=== PATIENT | female | born 1935 | race Caucasian/White ===

== ENCOUNTER → 2016-12-10 | Outpatient (CLI) | payer OTHER ==
[~2016-12-10] VITALS: Ht 162.6 cm; Wt 59.0 kg
[~2016-12-10] MED LIST: ACETAMINOPHEN-1 EAC1 PO; ASPIR 8181 MG PO; CITRACAL + BON1 EACH PO; HAIR, SKIN &66.7 MCG PO; OMEPRAZOLE40 MG PO; SIMVASTATIN40 MG PO; SPIRONOLACTONE25 M1 PO; VITAMIN D32000 UNI1 PO
--- NOTE | ~2016-12-10 | P ---
[facility] [place] [address] [place] [address] PROCEDURE REPORT Name: JESSI MERCADO Room #: REG [facility]#: [id number] Admission: 12/10/16 Attend Phys: Rick Burgess MD Discharge: Date of : 35 Report #: [id number] THIS REPORT FOR: //name// CC: Rick Mejia MD OUTPATIENT UPPER ENDOSCOPY REPORT DATE OF SERVICE: 12/10/2016. BRIEF HISTORY: The patient is an 81-year-old woman with complaints of recent vomiting as well as persistent nausea and about 5-pound weight loss. PREOPERATIVE DIAGNOSIS: Persistent nausea. POSTOPERATIVE DIAGNOSIS: Moderate diffuse erythematous gastritis. MEDICATIONS: Deep sedation with propofol per anesthesia. SPECIMEN: Biopsies of gastritis. ESTIMATED BLOOD LOSS: 3 mL. PROCEDURE: Esophagogastroduodenoscopy with biopsy. FINDINGS: Prior to propofol sedation, procedure of upper endoscopy discussed with the patient as well as potential risks and its complications. She indicates she understands and desires to proceed. DESCRIPTION OF PROCEDURE: With the patient in left lateral decubitus position, the Sensopiai video endoscope was inserted in the cervical esophagus under direct vision without difficulty. Examination of this organ through its entire length revealed normal esophageal mucosa down the squamocolumnar junction. Squamocolumnar junction was inspected and noted to be unremarkable. No ulcers or erosions were seen. A significant hiatus hernia was not seen, Parekh was not seen, Parekh mucosa was not seen. No inflammatory changes were seen. Scope was advanced in the stomach, which was examined on end view as well as retroflexed views. There was a moderate diffuse erythema throughout the stomach, but no ulcers or erosions were seen. In addition, in view of her nausea, I did not see any evidence of outlet obstruction or the retained solids or liquids to suggest gastroparesis. Upon retroflexion, no abnormalities were identified. The pylorus, duodenal bulb and postbulbar sweep were inspected and noted to be within normal limits. No ulcers were seen. Again, there is no evidence of obstruction. The scope was advanced down about the fourth portion of duodenum. At that point, the scope was slowly withdrawn and careful circumferential views confirmed the above findings. The patient tolerated the [address] [address] PROCEDURE REPORT Name: JESSI MERCADO Room #: REG [facility] Abel#: [id number] Admission: 12/10/16 Attend Phys: Rick Burgess MD Discharge: Date of : 35 Report #: [id number] procedure well. CONDITION OF THE PATIENT UPON DISCHARGE: Following procedure, the patient drowsy. She will be discharged home when fully ambulatory. INSTRUCTIONS TO THE PATIENT AND FAMILY AT THE TIME OF DISCHARGE: The patient initially had onset of vomiting. The vomiting has resolved. She did not have much pain. However, she continues with nausea. 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 Again, I do not see evidence of significant mucosal disease or outlet obstruction. We will follow up on biopsies and make further recommendations. In particular, she has evidence of H. pylori she may benefit from antibiotics treatment. she is currently is on omeprazole, I think it is helpful to some degree. I would continue at this point in time, we will add Zofran to use as needed for nausea. Another option would be use of metoclopramide, will likely to avoid due to potential side effects. However, if she does not have good results with Zofran, use of metoclopramide may be reasonable on a short-term basis. She will follow up with Dr. Stacy Mejia and return to see me as needed. <ELECTRONICALLY SIGNED> By: Rick Burgess MD 12/10/16 1523 [id number] [id number] Rick Burgess MD /nt
--- NOTE | ~2016-12-10 | S ---
[facility] [place] [address] [place] [address] SURGICAL PATH RPT PROCEDURE Name: JESSI RAMIREZINE Room #: REG [facility]..#: [id number] Admission: 12/10/16 Date of : 35 Discharge: Report #: [id number] Path Case #: [id number] PATHOLOGY REPORT COLLECTION DATE: 12/10/2016 RECEIVED DATE: 12/10/2016 SUBMITTING PHYS: Dr. Rick Burgess OTHER PHYS: Dr. Stacy Mejia SPECIMEN(S) RECEIVED: A.Bx gastritis * * * * * * * * * * * * FINAL DIAGNOSIS: Gastric mucosa, gastritis, endoscopic biopsy: - Moderate reactive gastropathy with focal active gastritis. - Negative for intestinal metaplasia or atrophy. - Negative for Helicobacter pylori. COMMENT: Helicobacter pylori immunohistochemical stain performed on block A1-negative (IUV:mgr; 12/13/2016) PATHOLOGIST: Kandi Gagnon M.D. REPORT ELECTRONICALLY SIGNED BY: Kandi Gagnon M.D. DATE/TIME: 12/13/2016 18:58 * * * * * * * * * * * * GROSS PATHOLOGY: Received in formalin labeled "Jessi Ramirez CARLITOS focal gastritis," are seven segments of choudhary soft tissue measuring 1.3 x 0.8 x 0.2 cm in aggregate dimensions and ranging from 0.2 to 0.4 cm in maximum dimension. The specimen is submitted entirely in cassette A1. (TSD; 12/10/2016) CLINICAL HISTORY: Pre-OP DX: Abdominal pain Post-OP DX: Gastritis INITIAL CPT CODE(S): A; 12545, 32056 Professional services performed by [facility] at [facility] [address], [place] [address] [facility] [address] [place] [address] SURGICAL PATH RPT PROCEDURE Name: JESSI RAMIREZ Room #: REG [facility]#: [id number] Admission: 12/10/16 Date of : 35 Discharge: Report #: [id number] Path Case #: [id number] Technical services performed by [facility] at [address] [place] [address], [facility] [address] [address]. [facility] [address] [place] [address] PHONE: [phone] DIRECTOR: Keith Vila M.D. * * * END OF REPORT * * *
== END | disposition home or self-care (01) ==
LOC: GI 07:06
DX: K29.60 Other gastritis without bleeding (principal); I10 Essential (primary) hypertension; E78.00 Pure hypercholesterolemia, unspecified; M19.90 Unspecified osteoarthritis, unspecified site; K21.9 Gastro-esophageal reflux disease without esophagitis; Z90.710 Acquired absence of both cervix and uterus; Z87.891 Personal history of nicotine dependence; Z98.890 Other specified postprocedural states; Z79.82 Long term (current) use of aspirin; Z79.899 Other long term (current) drug therapy
CPT/HCPCS: 62110